=== PATIENT | female | born 1975 | race Caucasian/White ===

== ENCOUNTER 2016-07-16 10:02 | Emergency (ER) | payer BC ==
[2016-07-16 11:55] VITALS: BP 128/73
--- NOTE | 2016-07-16 12:08 | UC ---
Upper Extremity HPI - HPI Summary HPI Summary: patient has had a lump in her wrist for 3 weeks. She had this before and it went away. now it is back. non red, slightly tender to touch, moveable. - History of Current Complaint Chief Complaint: UCUpperExtremity Stated Complaint: SKIN CONCERN Time Seen by Provider: 07/16/16 11:42 Hx Obtained From: Patient ?: No Onset/Duration: Sudden Onset, Lasting Weeks Severity Initially: Mild Severity Currently: Mild Pain Intensity: 3 Pain Scale Used: 0-10 Numeric Location Of Pain: Is Discrete @ - posterior left wrist Character: Stiffness Aggravating Factor(s): Movement Alleviating Factor(s): Nothing Associated Signs And Symptoms: Positive: Negative - Risk Factors Non-Orthopedic Risk Factor: Negative DVT Risk Factors: Negative Septic Arthritis Risk Factor: Negative - Allergies/Home Medications Allergies/Adverse Reactions: Allergies Allergy/AdvReac Type Severity Reaction Status Date / Time Hydrocodone AdvReac See Comment Verified 07/16/16 11:52 Home Medications: Home Medications NK [No Home Medications Reported] 07/16/16 [History Confirmed 07/16/16] PMH/Surg Hx/FS Hx/Imm Hx Previously Healthy: Yes Endocrine History Of: Denies: Diabetes, Thyroid Disease Cardiovascular History Of: Denies: Cardiac Disorders, Hypertension Respiratory History Of: Denies: COPD, Asthma GI/ History Of: Denies: Ulcer - Surgical History Surgical History: Yes Surgery Procedure, Year, and Place: Hysterectomy, 2013, [facility] - Family History Known Family History: Positive: None - negative for HTn or CAD - Social History Alcohol Use: Occasionally Substance Use Type: None Smoking Status (MU): Never Smoked Tobacco - Immunization History Most Recent Influenza Vaccination: Not the Season Review of Systems Constitutional: Negative Skin: Negative Eyes: Negative ENT: Negative Respiratory: Negative Cardiovascular: Negative Gastrointestinal: Negative Genitourinary: Negative Motor: Negative Musculoskeletal: Other: - small bump on wrist Neurological: Negative Psychological: Negative All Other Systems Reviewed And Are Negative: Yes Physical Exam Triage Information Reviewed: Yes Appearance: Well-Appearing, Well-Nourished, Pain Distress Vital Signs: Initial Vital Signs Temp 98.6 F 07/16/16 11:51 Pulse 74 07/16/16 11:51 Resp 16 07/16/16 11:51 BP 128/73 07/16/16 11:51 Pulse Ox 99 07/16/16 11:51 Vital Signs Reviewed: Yes Eye Exam: Normal Eyes: Positive: Conjunctiva Clear ENT Exam: Normal ENT: Positive: Normal ENT inspection, Pharynx normal, TMs normal Dental Exam: Normal Neck exam: Normal Neck: Positive: Supple, Nontender, No Lymphadenopathy Respiratory Exam: Normal Respiratory: Positive: Chest non-tender, Lungs clear, Normal breath sounds Cardiovascular Exam: Normal Cardiovascular: Positive: RRR, No Murmur, Pulses Normal Abdominal Exam: Normal Abdomen Description: Positive: Nontender, No Organomegaly, Soft Bowel Sounds: Positive: Present Musculoskeletal Exam: Normal Musculoskeletal: Positive: Strength Intact, ROM Intact, ROM Limited @ - due to pain in forearm in extreme ROM Neurological Exam: Normal Neurological: Positive: Alert, Muscle Tone Normal Psychological Exam: Normal Skin Exam: Normal Upper Extremity Course/Dx - Course Course Of Treatment: history obtained, exam performed, educated on cysts, educated on stretched to relieve muscle pain and hypertonicity in forearms. no medication presribed. - Differential Dx/Diagnosis Differential Diagnosis/HQI/PQRI: Burn, Bursitis, Contusion, Strain, Sprain Provider Diagnoses: ganglion cyst. myalgia Discharge - Discharge Plan Condition: Stable Disposition: HOME Patient Education Materials: Ganglion Cysts (ED) Additional Instructions: Do the stretches we talked about a few times a day. Use heat on forearm as needed. Ibuprofen and tylenol as needed for pain and swelling. follow up if the area becomes swollen, or red.
== END 2016-07-16 12:15 | disposition home or self-care (01) ==
LOC: UCCORT 10:02
DX: M67.439 Ganglion, unspecified wrist (principal); M79.1 Myalgia; Z88.5 Allergy status to narcotic agent
CPT/HCPCS: 99211; G0463

== ENCOUNTER 2017-07-13 17:00 | Emergency (ER) | payer BC ==
--- NOTE | 2017-07-13 17:33 | UC ---
Nausea/Vomiting/Diarrhea HPI - HPI Summary HPI Summary: 42 year old female presents with complains of fever, chills, and cough. - History of Current Complaint Stated Complaint: COLD LIKE SYMPTOMS Time Seen by Provider: 07/13/17 17:32 Hx Obtained From: Patient Onset/Duration: Sudden Onset Severity Initially: Moderate Severity Currently: Moderate Pain Scale Used: 0-10 Numeric - 0 - Allergies/Home Medications Allergies/Adverse Reactions: Allergies Allergy/AdvReac Type Severity Reaction Status Date / Time Hydrocodone AdvReac See Comment Verified 07/13/17 17:43 Home Medications: Home Medications Phenylephrine-Diphenhydramine- [Cold & Cough Daytim... 2.5-5 &2.5-6.25 mg/5Ml] 1 mis PO PRN 07/13/17 [History] PMH/Surg Hx/FS Hx/Imm Hx Previously Healthy: Yes - Surgical History Surgical History: Yes Surgery Procedure, Year, and Place: Hysterectomy, 2014, [facility] - Family History Known Family History: Positive: None - Social History Alcohol Use: Occasionally Substance Use Type: None Smoking Status (MU): Never Smoked Tobacco - Immunization History Most Recent Influenza Vaccination: Not the 2015/2016 Season Review of Systems Constitutional: Negative Skin: Negative Eyes: Negative ENT: Sore Throat, Nasal Discharge, Sinus Congestion, Sinus Pain/Tenderness Respiratory: Cough Cardiovascular: Negative Gastrointestinal: Negative Genitourinary: Negative Motor: Negative Neurovascular: Negative Musculoskeletal: Negative Neurological: Negative Psychological: Negative All Other Systems Reviewed And Are Negative: Yes Physical Exam Triage Information Reviewed: Yes Vital Signs Reviewed: Yes Eye Exam: Normal ENT: Positive: Pharyngeal erythema, Nasal congestion, Nasal drainage, Sinus tenderness Dental Exam: Normal Neck exam: Normal Neck: Positive: 1 Respiratory: Positive: Respiratory distress Cardiovascular Exam: Normal Abdominal Exam: Normal Musculoskeletal Exam: Normal Neurological Exam: Normal Psychological Exam: Normal Skin Exam: Normal Naus/Vom/Diarrhea Course/Dx - Differential Dx/Diagnosis Provider Diagnoses: cough. sinus congestion. post nasal drip Condition At Discharge: Stable Discharge - Discharge Plan Condition: Stable Disposition: HOME Prescriptions: Amoxicillin/Clavulanate TAB* [Augmentin TAB 875*] 875 mg PO BID #20 tab LoraTADine TAB(NF) [Claritin 10 MG TAB(NF)] 10 mg PO DAILY #30 tab Promethazine-Dm [Promethazine/Dextromethor 6.25-15 mg/5Ml] 1 teasp PO Q8H PRN # 120 ml PRN Reason: Cough Patient Education Materials: Acute Cough (ED) Referrals: No Primary Care Phys,NOPCP [Primary Care Provider] -
[2017-07-13 17:51] VITALS: BP 102/74
--- NOTE | 2017-07-13 18:25 | RAD ---
INDICATION: Productive cough for 2 weeks. Sinus and chest congestion. Afebrile. COMPARISON: No relevant prior exams available on the [facility] PACS for comparison. TECHNIQUE: Dual energy PA and routine lateral views of the chest were obtained. REPORT: Clear lungs and pleural spaces. Negative for pneumothorax. The heart, pulmonary vasculature, and mediastinal contours are unremarkable. Unremarkable osseous structures and soft tissue contours. IMPRESSION: No evidence for pneumonia. Negative exam.
== END 2017-07-13 18:41 | disposition home or self-care (01) ==
LOC: UCCORT 17:00
DX: R05 Cough (principal); J34.89 Other specified disorders of nose and nasal sinuses; R09.82 Postnasal drip
CPT/HCPCS: 71046; 99212; G0463

== ENCOUNTER 2017-07-24 09:27 | Emergency (ER) | payer BC ==
[2017-07-24 10:15] VITALS: BP 106/73
--- NOTE | 2017-07-24 10:49 | UC ---
Respiratory Complaint HPI - HPI Summary HPI Summary: cough x 2 days + chest congestion , sore throat fever, chills, body aches - History of Current Complaint Chief Complaint: UCRespiratory Stated Complaint: COUGH,ACHY Time Seen by Provider: 07/24/17 10:26 Hx Obtained From: Patient ?: No Onset/Duration: Gradual Onset, Lasting Days - 2, Still Present Timing: Constant Severity Initially: Moderate Severity Currently: Severe Character: Cough: Nonproductive Aggravating Factors: Exertion, Deep Breaths Associated Signs And Symptoms: Positive: Fever, Chills, Pleuritic Chest Pain, URI, Nasal Congestion. Negative: Dyspnea, Wheezing - Allergies/Home Medications Allergies/Adverse Reactions: Allergies Allergy/AdvReac Type Severity Reaction Status Date / Time Hydrocodone AdvReac See Comment Verified 07/24/17 10:06 PMH/Surg Hx/FS Hx/Imm Hx Previously Healthy: Yes - Surgical History Surgical History: Yes Surgery Procedure, Year, and Place: Hysterectomy, 2014, [facility]. LEFT WRIST GANGLIONECTOMY - Family History Known Family History: Positive: None Negative: Diabetes - Social History Alcohol Use: Occasionally Substance Use Type: None Smoking Status (MU): Never Smoked Tobacco - Immunization History Most Recent Influenza Vaccination: Not the 2015/2016 Season Review of Systems Constitutional: Fever, Chills, Fatigue Skin: Negative Eyes: Negative ENT: Sore Throat, Nasal Discharge Respiratory: Cough Cardiovascular: Negative Gastrointestinal: Negative Is Patient Immunocompromised?: No All Other Systems Reviewed And Are Negative: Yes Physical Exam Triage Information Reviewed: Yes Appearance: Well-Appearing, No Pain Distress, Well-Nourished Vital Signs: Initial Vital Signs Temp 99.3 F 07/24/17 10:07 Pulse 110 07/24/17 10:07 Resp 20 07/24/17 10:07 BP 106/73 07/24/17 10:07 Pulse Ox 98 07/24/17 10:07 Vital Signs Reviewed: Yes Eyes: Positive: Conjunctiva Clear ENT: Positive: Normal ENT inspection, Hearing grossly normal, Pharyngeal erythema, Nasal congestion, TMs normal Neck exam: Normal Neck: Positive: Supple, Nontender, No Lymphadenopathy Respiratory Exam: Normal Respiratory: Positive: Chest non-tender, Lungs clear, Normal breath sounds Cardiovascular: Positive: Tachycardia. Negative: Murmur:Sys:Grade _?_/, Murmur:Dys:Grade _?_/ Abdominal Exam: Normal Skin Exam: Normal UC Diagnostic Evaluation - Laboratory O2 Sat by Pulse Oximetry: 98 Respiratory Course/Dx - Differential Dx/Diagnosis Provider Diagnoses: influenza Discharge - Discharge Plan Condition: Stable Disposition: HOME Prescriptions: Guaifenesin-Codeine [Cheratussin AC] 10 ml PO Q8H #120 ml MDD 30 ML Oseltamivir CAP* [Tamiflu CAP*] 75 mg PO BID #10 cap Patient Education Materials: Influenza (ED) Forms: *Work Release Referrals: No Primary Care Phys,NOPCP [Primary Care Provider] - If Needed
== END 2017-07-24 10:51 | disposition home or self-care (01) ==
LOC: UCCORT 09:27
DX: J11.1 Influenza due to unidentified influenza virus with other respiratory manifestations (principal); Z90.710 Acquired absence of both cervix and uterus; Z88.5 Allergy status to narcotic agent
CPT/HCPCS: 87502; 99212; G0463

== ENCOUNTER 2018-07-09 12:17 | Emergency (ER) | payer BC ==
[2018-07-09 13:33] VITALS: BP 112/78
--- NOTE | 2018-07-09 13:52 | UC ---
FLU HPI - HPI Summary HPI Summary: 43-year-old female presents with onset of subjective fever, fatigue, body aches , headache, mild nasal congestion, nausea, vomiting, and occasional nonproductive cough yesterday. Reports 2 episodes of vomiting yesterday. No vomiting today. Did not receive her flu shot this year. Denies rash, ear pain , sore throat, chest pain, shortness of breath, abdominal pain, diarrhea, or urinary symptoms. - History of Current Complaint Chief Complaint: UCRespiratory Stated Complaint: COUGH,ACHES Time Seen by Provider: 07/09/18 13:51 Hx Obtained From: Patient Hx Last Menstrual Period: n/a Pain Intensity: 6 - Allergy/Home Medications Allergies/Adverse Reactions: Allergies Allergy/AdvReac Type Severity Reaction Status Date / Time hydrocodone AdvReac Pt doesn't Verified 07/09/18 13:[address] med makes her feel Home Medications: Home Medications Cold And Flu 2 tab PO ONCE PRN 07/09/18 [History Confirmed 07/09/18] PMH/Surg Hx/FS Hx/Imm Hx Previously Healthy: Yes - Denies significant PMH - Surgical History Surgical History: Yes Surgery Procedure, Year, and Place: Hysterectomy, 2014, [facility]. LEFT WRIST GANGLIONECTOMY - Family History Known Family History: Positive: None Negative: Diabetes - Social History Occupation: Employed Full-time Lives: With Family Alcohol Use: Occasionally Substance Use Type: None Smoking Status (MU): Never Smoked Tobacco - Immunization History Most Recent Influenza Vaccination: Not the 2016/2016 Season Review of Systems All Other Systems Reviewed And Are Negative: Yes Constitutional: Positive: Fever, Chills, Fatigue Skin: Negative: Rash Eyes: Negative: Drainage, Eye Redness ENT: Positive: Nasal Discharge. Negative: Sore Throat, Ear Ache, Sinus Congestion, Sinus Pain/Tenderness Respiratory: Positive: Cough. Negative: Shortness Of Breath Cardiovascular: Negative: Palpitations, Chest Pain Gastrointestinal: Positive: Vomiting, Nausea. Negative: Abdominal Pain, Diarrhea Genitourinary: Positive: Negative Musculoskeletal: Positive: Negative Neurological: Positive: Headache Is Patient Immunocompromised?: No Physical Exam - Summary Physical Exam Summary: GENERAL APPEARANCE: Well developed, well nourished, alert and cooperative, and appears to be in no acute distress. EYES: Conjunctiva clear. No drainage. Vision is grossly intact. EARS: External auditory canals and tympanic membranes clear, hearing grossly intact. NOSE: Mild nasal congestion with mild mucosal erythema. No nasal discharge. THROAT: Oral cavity and pharynx normal. No inflammation, swelling, exudate, or lesions. Teeth and gingiva in good general condition. NECK: Neck supple, non-tender without lymphadenopathy. CARDIAC: Normal S1 and S2. No S3, S4 or murmurs. Rhythm is regular. Mild tachycardia. There is no peripheral edema, cyanosis or pallor. Extremities are warm and well perfused. Capillary refill is less than 2 seconds. LUNGS: Clear to auscultation and percussion without rales, rhonchi, wheezing or diminished breath sounds. ABDOMEN: Positive bowel sounds. Soft, nondistended, nontender. No guarding or rebound. No masses or hepatosplenomegally. MUSKULOSKELETAL: ROM intact to all extremities. No joint erythema or tenderness. Normal muscular development. Normal gait. SKIN: Skin normal color, texture and turgor with no lesions or eruptions. Triage Information Reviewed: Yes Vital Signs: Initial Vital Signs Temp 100.1 F 07/09/18 13:26 Pulse 118 07/09/18 13:26 Resp 24 07/09/18 13:26 BP 112/78 07/09/18 13:26 Pulse Ox 98 07/09/18 13:26 Vital Signs Reviewed: Yes Diagnostics - Laboratory Diagnostic Studies Completed/Ordered: Rapid flu negative. Flu Course/Dx - Course Course Of Treatment: 43-year-old female presents with onset of subjective fever , fatigue, body aches, headache, mild nasal congestion, nausea, vomiting, and occasional nonproductive cough yesterday. Reports 2 episodes of vomiting yesterday. No vomiting today. Did not receive her flu shot this year. Denies rash, ear pain, sore throat, chest pain, shortness of breath, abdominal pain, diarrhea, or urinary symptoms. Temperature is mildly elevated at 100.1 F and she has some mild tachycardia otherwise vital signs are stable. Exam revealed mild nasal congestion with mucosal erythema but was otherwise unremarkable. Rapid flu was negative. Suspect viral syndrome. Recommending symptomatic treatment. She is to follow-up here or with her primary care provider if symptoms persist. Warning symptoms were reviewed with the patient. She verbalizes understanding and agrees with plan of care. - Differential Dx/Diagnosis Differential Diagnosis/HQI/PQRI: Bronchitis, Influenza, Pneumonia, Upper Respiratory Infection Provider Diagnosis: Viral syndrome Discharge - Sign-Out/Discharge Documenting (check all that apply): Patient Departure All imaging exams completed and their final reports reviewed: No Studies - Discharge Plan Condition: Stable Disposition: HOME Patient Education Materials: Viral Syndrome (ED) Referrals: No Primary Care Phys,NOPCP [Primary Care Provider] - Additional Instructions: The rapid flu test performed in the clinic today was negative. Your history and exam are consistent with a viral infection. Viral infections do not respond to antibiotics and are limited to the treatment of symptoms. Viral infections typically run their course in 7-10 days. Drink plenty of fluids to avoid dehydration especially if you are running any fever. Take over the counter acetaminophen (Tylenol) or ibuprofen (Advil, Motrin) according to directions as needed for pain or fever. Follow up with your primary care provider in 7 days if symptoms persist. Seek immediate medical attention in the emergency room if you have fever greater than 100.5 F despite taking acetaminophen or ibuprofen, have chest pain , difficulty breathing, severe abdominal pain, persistent vomiting, or any worsening of symptoms. - Billing Disposition and Condition Condition: STABLE Disposition: Home
== END 2018-07-09 14:37 | disposition home or self-care (01) ==
LOC: UCCORT 12:17
DX: B34.9 Viral infection, unspecified (principal); Z88.5 Allergy status to narcotic agent
CPT/HCPCS: 99211; G0463

== ENCOUNTER 2018-07-13 12:18 | Emergency (ER) | payer BC ==
[2018-07-13 13:25] VITALS: BP 117/73
--- NOTE | 2018-07-13 13:35 | UC ---
Throat Pain/Nasal Jasson HPI - HPI Summary HPI Summary: 43 yo female presents with RIGHT ear pain, sore throat, dry cough, and fatigue for the last 6 days. She was seen here a few days ago and dx'd with a viral illness. Since that time her symptoms have not improved. She does not smoke. Denies fever, chills, SOB, chest pain, n/v. - History of Current Complaint Chief Complaint: UCGeneralIllness Stated Complaint: COUGH,HEADACHE (RECHECK FROM 07/09/18) Time Seen by Provider: 07/13/18 13:34 Hx Obtained From: Patient Hx Last Menstrual Period: n/a Onset/Duration: Gradual Onset Severity: Moderate Pain Intensity: 4 Pain Scale Used: 0-10 Numeric - Allergies/Home Medications Allergies/Adverse Reactions: Allergies Allergy/AdvReac Type Severity Reaction Status Date / Time hydrocodone AdvReac Pt doesn't Verified 07/13/18 13:[address] med makes her feel PMH/Surg Hx/FS Hx/Imm Hx - Additional Past Medical History Additional PMH: None - Surgical History Surgical History: Yes Surgery Procedure, Year, and Place: Hysterectomy, 2014, [facility]. LEFT WRIST GANGLIONECTOMY - Family History Known Family History: Negative: Diabetes - Social History Occupation: Employed Full-time Lives: With Family Alcohol Use: Occasionally Substance Use Type: None Smoking Status (MU): Never Smoked Tobacco - Immunization History Most Recent Influenza Vaccination: Not the 2016/2017 Season Review of Systems All Other Systems Reviewed And Are Negative: Yes Constitutional: Positive: Negative Skin: Positive: Negative Eyes: Positive: Negative ENT: Positive: Sore Throat, Ear Ache Respiratory: Positive: Cough Cardiovascular: Positive: Negative Gastrointestinal: Positive: Negative Neurological: Positive: Negative Psychological: Positive: Negative Physical Exam - Summary Physical Exam Summary: GENERAL: NAD. WDWN. No pain distress. SKIN: No rashes, sores, lesions, or open wounds. HEENT: Head: AT/NC Eyes: Conjunctiva clear without inflammation or discharge. Ears: Hearing grossly normal. TMs intact with clear fluid behind right TM, no bulging, erythema, or edema. Nose: Nasal mucosa pink and moist. NTTP maxillary and frontal sinus. Throat: Posterior oropharynx without exudates, erythema, or tonsillar enlargement. Uvula midline. NECK: Supple. Nontender. No lymphadenopathy. CHEST: Mild wheezing throughout. No r/r. No accessory muscle use. Breathing comfortably and in no distress. CV: RRR. Without m/r/g. Pulses intact. Cap refill <2seconds NEURO: Alert. PSYCH: Age appropriate behavior. Triage Information Reviewed: Yes Vital Signs: Initial Vital Signs Temp 98.2 F 07/13/18 13:21 Pulse 90 07/13/18 13:21 Resp 17 07/13/18 13:21 BP 117/73 07/13/18 13:21 Pulse Ox 98 07/13/18 13:21 Vital Signs Reviewed: Yes Throat Pain/Nasal Course/Dx - Course Course Of Treatment: Bronchitis. Serous otitis media. - Differential Dx/Diagnosis Provider Diagnosis: Bronchitis, Serous otitis media Discharge - Sign-Out/Discharge Documenting (check all that apply): Patient Departure All imaging exams completed and their final reports reviewed: No Studies - Discharge Plan Condition: Stable Disposition: HOME Prescriptions: Azithromycin TAB* [Zithromax TAB (Z-PETER) 250 mg #6 tabs] 2 tab PO .TODAY, THEN 1 DAILY #1 peter Benzonatate CAP* [Tessalon 100 MG CAP*] 100 mg PO TID PRN #21 cap PRN Reason: Cough predniSONE TAB* [Deltasone 20 MG TAB*] 40 mg PO DAILY #10 tab Patient Education Materials: Acute Bronchitis (ED) Forms: *Work Release Referrals: No Primary Care Phys,NOPCP [Primary Care Provider] - Additional Instructions: If you develop a fever, shortness of breath, chest pain, new or worsening symptoms - please call your PCP or go to the ED. - Billing Disposition and Condition Condition: STABLE Disposition: Home
== END 2018-07-13 13:47 | disposition home or self-care (01) ==
LOC: UCCORT 12:18
DX: J40 Bronchitis, not specified as acute or chronic (principal); H65.91 Unspecified nonsuppurative otitis media, right ear; Z88.5 Allergy status to narcotic agent
CPT/HCPCS: 99212; G0463